=== PATIENT | female | born 1960 | race Caucasian/White ===

== ENCOUNTER → 2019-02-08 09:35 | Outpatient (CLI) | payer BC, SELFPAY ==
--- NOTE | 2019-02-08 | DI.RAD.S_ITS ---
PROCEDURE: XR KNEE RT 3V INDICATIONS: R KNEE PAIN TECHNIQUE: 3 views of the knee were acquired. COMPARISON: None. FINDINGS: Bones: No fractures or dislocations. No suspicious bony lesions. Trace degenerative change of the patellofemoral compartment as evidenced by osteophyte formation. Soft tissues: No joint effusion. No suspicious soft tissue calcifications. IMPRESSION: Trace degenerative changes of the patellofemoral compartment of the right knee. Dictated by: Deandre Robbins M.D. on 02/08/2019 at 14:12 Approved by: Deandre Robbins M.D. on 02/08/2019 at 14:15
== END ==
PROVIDERS: Visit Provider Physician Assistant
DX: M25.561 Pain in right knee (principal)
CPT/HCPCS: 73562

== ENCOUNTER → 2019-11-29 10:00 | Outpatient (CLI) | payer BC, SELFPAY ==
--- NOTE | 2019-11-29 | DI.MG.S_ITS ---
BILATERAL DIGITAL SCREENING MAMMOGRAM 3D/2D WITH CAD: 11/29/2019 CLINICAL: Routine screening. Comparison is made to exams dated: 06/05/2017 mammogram, 02/07/2014 mammogram, and 11/08/2012 mammogram - [facility]. There are scattered fibroglandular elements in both breasts. Current study was also evaluated with a Computer Aided Detection (CAD) system. There is new cluster of grouped fine pleomorphic calcifications in the right breast central to the nipple anterior depth 5 cm from the nipple. No other significant masses, calcifications, or other findings are seen in either breast. IMPRESSION: INCOMPLETE: NEEDS ADDITIONAL IMAGING EVALUATION New clustered fine pleomorphic calcifications in the right breast for which diagnostic mammogram with additional views and magnificaiton views are recommended. This exam was interpreted at Station ID: [id number]. NOTE: For mammograms, a report in lay terms will be sent to the patient. Approximately 15% of breast malignancies will not be visualized mammographically. In the management of a palpable breast mass, a negative mammogram must not discourage biopsy of a clinically suspicious lesion. Electronically Signed By: Francisco Galeas M.D. jr/:11/29/2019 10:44:27 letter sent: Additional Imaging Needed ACR BI-RADS Category 0: Incomplete 3340F
== END ==
PROVIDERS: Referring Provider Physician Assistant Medical; Visit Provider Physician Assistant Medical
DX: Z12.31 Encounter for screening mammogram for malignant neoplasm of breast (principal)
CPT/HCPCS: 77063; 77067

== ENCOUNTER → 2019-12-25 08:37 | Outpatient (CLI) | payer BC, SELFPAY ==
--- NOTE | 2019-12-25 08:52 | DI.MG.S_ITS ---
Patient Name: MATEO LIM date: 1960 Sex: F Attending Physician: Jose Indications: Date: 12/25/2019 08:45 At the request of: FESTUS EVANS Procedure: MM special view RT UNILATERAL RIGHT DIGITAL DIAGNOSTIC MAMMOGRAM 3D/2D WITH ADDITIONAL VIEWS: 12/25/2019 CLINICAL: Additional evaluation requested from prior study. Comparison is made to exams dated: 11/29/2019 mammogram - [facility], 06/05/2017 mammogram, and 02/07/2014 mammogram - [facility]. The tissue of right breast is extremely dense, which lowers the sensitivity of mammography. The grouped punctate calcifications in the right breast at 12 o'clock middle depth are seen on additional views. No other significant masses or calcifications are seen in the breast. IMPRESSION: PROBABLY BENIGN The grouped punctate calcifications in the right breast are probably benign. A follow-up mammogram in 6 months is recommended to demonstrate stability. This exam was interpreted at Station ID: [id number]. NOTE: For mammograms, a report in lay terms will be sent to the patient. Approximately 15% of breast malignancies will not be visualized mammographically. In the management of a palpable breast mass, a negative mammogram must not discourage biopsy of a clinically suspicious lesion. Electronically Signed By: Kalli lyles/:12/25/2019 10:10:09 letter sent: Followup Recommended ACR BI-RADS Category 3: Probably benign 3343F
== END ==
PROVIDERS: PCP Physician Assistant Medical; Referring Provider Physician Assistant Medical; Visit Provider Physician Assistant Medical
DX: R92.8 Other abnormal and inconclusive findings on diagnostic imaging of breast (principal); R92.1 Mammographic calcification found on diagnostic imaging of breast
CPT/HCPCS: 77065; G0279

== ENCOUNTER → 2020-06-26 09:56 | Outpatient (CLI) | payer BC, SELFPAY ==
--- NOTE | 2020-06-26 | DI.MG.S_ITS ---
UNILATERAL RIGHT DIGITAL DIAGNOSTIC MAMMOGRAM 3D/2D: 06/26/2020 CLINICAL: Patient returns for a 6 month follow up of the right breast. Comparison is made to exams dated: 12/25/2019 mammogram, 11/29/2019 mammogram - [facility], and 06/05/2017 mammogram - [facility]. The tissue of right breast is extremely dense, which lowers the sensitivity of mammography. There are grouped punctate calcifications in the right breast at 12 o'clock middle depth. These are not significantly changed. No other significant masses or calcifications are seen in the breast. IMPRESSION: PROBABLY BENIGN The grouped punctate calcifications in the right breast are probably benign. A follow-up mammogram in 6 months is recommended to demonstrate stability. This exam was interpreted at Station ID: [id number]. NOTE: For mammograms, a report in lay terms will be sent to the patient. Approximately 15% of breast malignancies will not be visualized mammographically. In the management of a palpable breast mass, a negative mammogram must not discourage biopsy of a clinically suspicious lesion. Electronically Signed By: Erickson nowak/fidelina:06/26/2020 11:17:24 letter sent: Followup Recommended ACR BI-RADS Category 3: Probably benign 3343F
== END ==
PROVIDERS: PCP Physician Assistant Medical; Referring Provider Physician Assistant Medical; Visit Provider Physician Assistant Medical
DX: R92.8 Other abnormal and inconclusive findings on diagnostic imaging of breast (principal); R92.1 Mammographic calcification found on diagnostic imaging of breast
CPT/HCPCS: 77065; G0279

== ENCOUNTER → 2020-11-26 11:00 | Outpatient (CLI) | payer BC, SELFPAY ==
--- NOTE | 2020-11-26 | DI.RAD.S_ITS ---
PROCEDURE: XR HAND RT MIN 3V INDICATIONS: Ankylosis, right hand TECHNIQUE: 3 views of the hand(s) acquired. COMPARISON: None. FINDINGS: Bones: No fractures or dislocations. Carpal bones are normally aligned. No suspicious bony lesions. Severe triscaphe joint space narrowing. Smooth, well corticated osseous density adjacent to the 4th DIP joint along the radial surface. Soft tissues: No suspicious soft tissue calcifications. IMPRESSION: 1. Severe triscaphe joint degeneration. 2. Remote fracture fragment versus bony ossicle adjacent to the 3rd DIP joint. Dictated by: Luis Antonio DOLL Interpreted: Erickson Watson MD on 11/26/2020 at 11:24 Transcribed by: MALIA on 11/26/2020 at 11:25 Approved by: Erickson Watson M.D. on 11/26/2020 at 13:02
--- NOTE | 2020-11-26 | DI.RAD.S_ITS ---
PROCEDURE: XR WRIST RT MIN 3V INDICATIONS: WRIST PAIN TECHNIQUE: 2 views of the wrist were acquired. COMPARISON: [facility], CR, XR HAND RT MIN 3V, 11/26/2020, 11:05. FINDINGS: Bones: No fractures or dislocations. No suspicious bony lesions. Severe triscaphe joint space narrowing. Scaphoid view: Not requested. Soft tissues: No suspicious soft tissue calcifications. IMPRESSION: Severe triscaphe joint degeneration. Dictated by: Luis Antonio RICHARDSON Interpreted: Erickson Watson MD on 11/26/2020 at 11:25 Transcribed by: MALIA on 11/26/2020 at 11:25 Approved by: Erickson Watson M.D. on 11/26/2020 at 13:02
== END ==
PROVIDERS: PCP Physician Assistant; Referring Provider Physician Assistant; Visit Provider Physician Assistant
DX: M24.641 Ankylosis, right hand (principal); M25.531 Pain in right wrist; M19.031 Primary osteoarthritis, right wrist
CPT/HCPCS: 73110; 73130

== ENCOUNTER → 2021-01-08 11:49 | Outpatient (CLI) | payer BC, SELFPAY ==
--- NOTE | 2021-01-08 11:50 | DI.MG.S_ITS ---
BILATERAL DIGITAL DIAGNOSTIC MAMMOGRAM 3D/2D: 01/08/2021 CLINICAL: Short term follow up of the right breast, due for bilateral imaging. Comparison is made to exams dated: 06/26/2020 mammogram, 12/25/2019 mammogram, and 11/29/2019 mammogram - [facility]. There are scattered fibroglandular elements in both breasts. There is stable cluster of grouped fine pleomorphic calcifications in the right breast central to the nipple anterior depth 5 cm from the nipple. No other significant masses, calcifications, or other findings are seen in either breast. IMPRESSION: PROBABLY BENIGN The stable cluster of grouped fine pleomorphic calcifications in the right breast are probably benign. A follow-up mammogram in 6 months is recommended. A follow-up mammogram in 6 months is recommended to demonstrate stability. This exam was interpreted at Station ID: [id number]. NOTE: For mammograms, a report in lay terms will be sent to the patient. Approximately 15% of breast malignancies will not be visualized mammographically. In the management of a palpable breast mass, a negative mammogram must not discourage biopsy of a clinically suspicious lesion. Electronically Signed By: Francisco Galeas M.D., jr/fidelina:01/08/2021 12:33:50 letter sent: Followup Recommended ACR BI-RADS Category 3: Probably benign 3343F
== END ==
PROVIDERS: PCP Physician Assistant; Referring Provider Physician Assistant; Visit Provider Physician Assistant
DX: R92.1 Mammographic calcification found on diagnostic imaging of breast (principal)
CPT/HCPCS: 77066; G0279

== ENCOUNTER → 2021-08-11 12:50 | Outpatient (CLI) | payer BC, SELFPAY ==
--- NOTE | 2021-08-11 | DI.MG.S_ITS ---
UNILATERAL RIGHT DIGITAL DIAGNOSTIC MAMMOGRAM 3D/2D SHORT-TERM FOLLOW-UP: 08/11/2021 CLINICAL: Short term follow up of the right breast. Comparison is made to exams dated: 01/08/2021 mammogram, 06/26/2020 mammogram, 12/25/2019 mammogram, and 11/29/2019 mammogram - [facility]. There are scattered fibroglandular elements in right breast. There is stable cluster of grouped fine pleomorphic calcifications in the right breast central to the nipple anterior depth 5 cm from the nipple. No other significant masses or calcifications are seen in the breast. IMPRESSION: PROBABLY BENIGN The stable cluster of grouped fine pleomorphic calcifications in the right breast are probably benign. A follow-up mammogram in 6 months is recommended. A follow-up mammogram in 6 months is recommended to demonstrate stability. This exam was interpreted at Station ID: [id number]. NOTE: For mammograms, a report in lay terms will be sent to the patient. Approximately 15% of breast malignancies will not be visualized mammographically. In the management of a palpable breast mass, a negative mammogram must not discourage biopsy of a clinically suspicious lesion. Electronically Signed By: Francisco Galeas M.D., jr/fidelina:08/11/2021 13:26:26 letter sent: Followup Recommended ACR BI-RADS Category 3: Probably benign 3343F
== END ==
PROVIDERS: PCP Physician Assistant; Referring Provider Physician Assistant; Visit Provider Physician Assistant
DX: R92.8 Other abnormal and inconclusive findings on diagnostic imaging of breast (principal); R92.1 Mammographic calcification found on diagnostic imaging of breast
CPT/HCPCS: 77065; G0279

== ENCOUNTER → 2022-03-07 09:01 | Outpatient (CLI) | payer BC, SELFPAY ==
--- NOTE | 2022-03-07 | DI.MG.S_ITS ---
BILATERAL DIGITAL DIAGNOSTIC MAMMOGRAM 3D/2D SHORT-TERM FOLLOW-UP: 03/07/2022 CLINICAL: Short term follow up of the right breast, due for bilateral imaging. Comparison is made to exams dated: 08/11/2021 mammogram, 01/08/2021 mammogram, 06/26/2020 mammogram, 12/25/2019 mammogram, 11/29/2019 mammogram - [facility], and 06/05/2017 mammogram - [facility]. Both breasts are heterogeneously dense, which may obscure small masses (category c / 51-75% glandular tissue). There is a stable fine calcification in the right breast central to the nipple anterior depth. No other significant masses, calcifications, or other findings are seen in either breast. IMPRESSION: BENIGN There is no mammographic evidence of malignancy. Fine calcification in the right breast central to the nipple anterior depth demonstrate long-term stability and are benign. A 1 year screening mammogram is recommended. Exam findings were conveyed to the patient. Based on the Tyrer Cuzick model (a risk assessment model) the patient's lifetime risk is 8.8% and her 10 year risk is 3.7%. According to the ACR, ACS, and NCCN guidelines, an annual breast MRI exam along with mammogram is recommended if the patient's lifetime risk is 20% or greater. This exam was interpreted at Station ID: [id number]. NOTE: For mammograms, a report in lay terms will be sent to the patient. Approximately 15% of breast malignancies will not be visualized mammographically. In the management of a palpable breast mass, a negative mammogram must not discourage biopsy of a clinically suspicious lesion. Electronically Signed By: Stanton Oh M.D. [facility]/:03/07/2022 10:10:15 letter sent: Normal Exam ACR BI-RADS Category 2: Benign Finding(s) 3342F
== END ==
PROVIDERS: PCP Internal Medicine; Referring Provider Internal Medicine; Visit Provider Internal Medicine
DX: R92.1 Mammographic calcification found on diagnostic imaging of breast (principal)
CPT/HCPCS: 77066; G0279

== ENCOUNTER → 2023-04-04 10:45 | Outpatient (CLI) | payer BC, SELFPAY ==
--- NOTE | 2023-04-04 | DI.MG.S_ITS ---
BILATERAL DIGITAL SCREENING MAMMOGRAM 3D/2D WITH CAD: 04/04/2023 CLINICAL: Routine screening. Comparison is made to exams dated: 03/07/2022 mammogram, 01/08/2021 mammogram, and 11/29/2019 mammogram - [facility]. Both breasts are extremely dense, which lowers the sensitivity of mammography (category d />75% glandular tissue). Current study was also evaluated with a Computer Aided Detection (CAD) system. There are benign calcifications in both breasts. There also are benign vascular calcifications in the left breast. No significant masses, calcifications, or other findings are seen in either breast. There has been no significant interval change. IMPRESSION: BENIGN There is no mammographic evidence of malignancy. A 1 year screening mammogram is recommended. Based on the Tyrer Cuzick model (a risk assessment model) the patient's lifetime risk is 12.7% and her 10 year risk is 5.6%. According to the ACR, ACS, and NCCN guidelines, an annual breast MRI exam along with mammogram is recommended if the patient's lifetime risk is 20% or greater. This exam was interpreted at Station ID: [id number]. NOTE: For mammograms, a report in lay terms will be sent to the patient. Approximately 15% of breast malignancies will not be visualized mammographically. In the management of a palpable breast mass, a negative mammogram must not discourage biopsy of a clinically suspicious lesion. Electronically Signed By: Sammie cade/fidelina:04/04/2023 13:04:42 letter sent: Normal Exam ACR BI-RADS Category 2: Benign Finding(s) 3342F
== END ==
PROVIDERS: PCP Internal Medicine; Referring Provider Obstetrics & Gynecology; Visit Provider Obstetrics & Gynecology
DX: Z12.31 Encounter for screening mammogram for malignant neoplasm of breast (principal)
CPT/HCPCS: 77063; 77067

== ENCOUNTER → 2024-04-05 09:48 | Outpatient (CLI) | payer BC, SELFPAY ==
--- NOTE | 2024-04-05 09:49 | DI.MG.S_ITS ---
BILATERAL DIGITAL SCREENING MAMMOGRAM 3D/2D WITH CAD: 04/05/2024 CLINICAL: Routine screening. Comparison is made to exams dated: 04/04/2023 mammogram, 03/07/2022 mammogram, and 01/08/2021 mammogram - [facility]. The breasts are extremely dense, which lowers the sensitivity of mammography (category d />75% glandular tissue). Current study was also evaluated with a Computer Aided Detection (CAD) system. There are benign calcifications in both breasts. There also are benign vascular calcifications in the left breast. No significant masses, calcifications, or other findings are seen in either breast. There has been no significant interval change. IMPRESSION: BENIGN There is no mammographic evidence of malignancy. A 1 year screening mammogram is recommended. Based on the Tyrer Cuzick model (a risk assessment model) the patient's lifetime risk is 12.4% and her 10 year risk is 5.6%. According to the ACR, ACS, and NCCN guidelines, an annual breast MRI exam along with mammogram is recommended if the patient's lifetime risk is 20% or greater. This exam was interpreted at Station ID: [id number]. NOTE: For mammograms, a report in lay terms will be sent to the patient. Approximately 15% of breast malignancies will not be visualized mammographically. In the management of a palpable breast mass, a negative mammogram must not discourage biopsy of a clinically suspicious lesion. Electronically Signed By: Sher galarza/fidelina:04/09/2024 07:20:54 letter sent: Normal Exam ACR BI-RADS Category 2: Benign
== END ==
PROVIDERS: PCP Family Medicine; Referring Provider Family Medicine; Visit Provider Family Medicine
DX: Z12.31 Encounter for screening mammogram for malignant neoplasm of breast (principal); R92.343 Mammographic extreme density, bilateral breasts
CPT/HCPCS: 77063; 77067